=== PATIENT | male | born 1990 | race Caucasian/White ===

== ENCOUNTER → 2024-08-08 08:20 | Outpatient (CLI) | payer OTHER, SELFPAY ==
--- NOTE | 2024-08-08 08:23 | DI.MRI.S_ITS ---
PROCEDURE: MR SHOULDER RT WO CON INDICATIONS: PAIN IN RIGHT SHOULDER TECHNIQUE: Noncontrast oblique coronal T2 fast spin echo with fat saturation, oblique sagittal T1 spin echo and T2 fast spin echo with fat saturation, axial T1 spin echo and T2 fast spin echo with fat saturation through the shoulder. COMPARISON: None. FINDINGS: Image quality: Excellent. Rotator cuff: Mild supraspinatus and infraspinatus tendinosis. Teres minor tendon is intact. There is mild subscapularis tendinosis. No significant rotator cuff tendon tearing is seen. Rotator cuff musculature is well-developed. Bones and bursae: Acute trabecular bone injury or fracture. No focal glenohumeral cartilage defect is seen. Mild degenerative changes are seen in the acromioclavicular joint. Small amount of fluid in the subacromial/subdeltoid bursa. No significant glenohumeral effusion. Capsule and soft tissues: Nondisplaced tearing of the posterior to inferior labrum. A large lobular paralabral cyst at the posterior inferior labrum extends medially over the glenoid rim measuring approximately the 27 x 14 x 20 mm. The cyst approaches the spinoglenoid notch. No acute or chronic denervation changes are seen within the infraspinatus muscle. Additional thin lobular paralabral cyst extends 0 inferiorly from the inferior labrum measuring up to 13 x 5 x 3 mm. Proximal biceps long head tendon demonstrates mild tendinosis. There is effacement of the normal fat signal in the rotator interval. The anterior band of the inferior glenohumeral ligament and the middle glenohumeral ligament appear thickened. IMPRESSION: 1. Nondisplaced tearing of the posterior to inferior labrum. 2. Large 27 mm paralabral cyst at the posterior labrum extends medially over the glenoid rim to the spinoglenoid notch. No acute or chronic denervation changes in the infraspinatus muscle. Smaller thin paralabral cyst extending inferiorly measures up to 13 mm. 3. Mild proximal biceps long head tendinosis. 4. Mild acromioclavicular joint osteoarthrosis. Pair of small subacromial/subdeltoid bursal effusion or mild bursitis. 5. Effacement of the rotator interval fat and thickening of the middle and inferior glenohumeral ligaments are nonspecific, but can be seen in the setting of the clinical syndrome of adhesive capsulitis. Approved by: Edison Dhaliwal M.D. on 08/09/2024 at 16:02
== END ==
DX: S43.431A Superior glenoid labrum lesion of right shoulder, initial encounter (principal); M19.011 Primary osteoarthritis, right shoulder; M25.511 Pain in right shoulder
CPT/HCPCS: 73221